=== PATIENT | male | born 1965 | race African-American/Black ===

== ENCOUNTER 2017-03-29 15:45 | Emergency (ER) | payer OTHER, SELFPAY ==
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
--- NOTE | 2017-03-29 16:54 | RAD ---
RADIOGRAPH CHEST 1 VIEW: HISTORY: 51-year-old male with acute chest pain. FINDINGS: There are no air space densities, pulmonary edema, pneumothorax, or cardiomegaly. The lateral costo phrenic angles are sharp. IMPRESSION: 1. No acute cardiopulmonary findings. 2. Elevated right hemidiaphragm. 3. No interval change since 03-12-07. stephan POS: [facility]GENIS
== END 2017-03-29 17:40 | disposition home or self-care (01) ==
LOC: ERS 15:45
DX: S13.9XXA Sprain of joints and ligaments of unspecified parts of neck, initial encounter (principal); R07.89 Other chest pain; M25.512 Pain in left shoulder; E11.9 Type 2 diabetes mellitus without complications; E78.5 Hyperlipidemia, unspecified; I10 Essential (primary) hypertension; F41.9 Anxiety disorder, unspecified; F31.9 Bipolar disorder, unspecified; Z79.84 Long term (current) use of oral hypoglycemic drugs; Z79.82 Long term (current) use of aspirin; Z79.899 Other long term (current) drug therapy; V43.52XA Car driver injured in collision with other type car in traffic accident, initial encounter
CPT/HCPCS: 71010

== ENCOUNTER 2020-09-10 14:29 | Emergency (ER) | payer OTHER | END 2020-09-10 17:33 | disposition left against medical advice (07) | LOC: ERS 14:29 | DX: Z53.21 Procedure and treatment not carried out due to patient leaving prior to being seen by health care provider (principal) | CPT/HCPCS: 71045; 93005 ==